=== PATIENT | male | born 1985 | race Caucasian/White ===

== ENCOUNTER 2019-01-24 19:12 | Emergency (ER) | payer BC, MEDICAID, OTHER ==
[~2019-01-24] VITALS: Ht 177.8 cm; Wt 68.5 kg
[2019-01-24] MEDS ORDERED: MORPHINE SULFATE INJ 2 MG/ML DISP.SYRIN ONE (19:59)
[2019-01-24] MEDS ORDERED: ONDANSETRON HCL/PF 4 MG/2 ML VIAL ONE (19:59)
[2019-01-24] MEDS ORDERED: ONDANSETRON HCL/PF 4 MG/2 ML VIAL IVP ONE (20:00)
[2019-01-24] MEDS ORDERED: MORPHINE SULFATE INJ 2 MG/ML DISP.SYRIN IV ONE (20:00)
[2019-01-24] MEDS ORDERED: IV NS 0.9% 1,000 ML BAG IV ONE (20:00)
[2019-01-24 20:15] LABS: BASOPHILS % (AUTO) 0.6 % (0.0-2.0); EOSINOPHILS % (AUTO) 6.5 % (0.0-6.0); HEMATOCRIT 45 % (39-51); HEMOGLOBIN 15.2 g/dL (13.5-17.5); LYMPHOCYTES # (AUTO) 2.1 /CMM (0.8-4.8); LYMPHOCYTES % (AUTO) 29.2 % (20.0-44.0); MEAN CORPUSCULAR HGB CONC 34 g/dl (31.0-36.0); MEAN CORPUSCULAR VOLUME 85 fL (80-96); MONOCYTES # (AUTO) 0.8 /CMM (0.1-1.30); MONOCYTES % (AUTO) 11.7 % (2.0-12.0); NEUTROPHILS # (AUTO) 3.8 /CMM (1.8-8.9); PLATELET COUNT (AUTO) 198 /CMM (150-450); RED BLOOD CELL COUNT(AUTO) 5.27 MIL/uL (4.5-6.0); WHITE BLOOD COUNT (AUTO) 7.2 K/uL (4.3-11.0)
[2019-01-24 20:18] LABS: APPEARANCE,URINE Clear (CLEAR); BILIRUBIN,URINE Negative (NEGATIVE); BLOOD, URINE Negative Ery/uL (NEGATIVE); COLOR,URINE Yellow (YELLOW); KETONES,URINE Negative (NEGATIVE); LEUKOCYTE ESTERASE ,URINE Negative (NEGATIVE); NITRITE, URINE Negative (NEGATIVE); PROTEIN,URINE Negative (NEGATIVE); UGLUCOSE Negative (NEGATIVE)
--- NOTE | 2019-01-24 20:18 | NUR ---
PT BIBS C/O ABDOMINAL PAIN X3 DAYS, "WORSE AFTER HAVING A BM WITH CRAMPING AND SPASM", BED 1 LINE STARTED, LABS DRAWN, 1L NS INFUSSING
--- NOTE | 2019-01-24 20:20 | NUR ---
PT TAKEN TO CT
[2019-01-24 20:31] LABS: BACTERIA,URINE Few /HPF (None Seen); RBC,URINE 0-2 /HPF (0-2); SQUAMOUS EPITHELIAL CELL,UR Few /HPF (None Seen); WBC,URINE 0-2 /HPF (0-3)
--- NOTE | 2019-01-24 20:40 | NUR ---
PT BACK FROM CT
[2019-01-24 20:48] LABS: CALCIUM, SERUM 9.3 mg/dL (8.5-10.1)
[2019-01-24 20:54] LABS: ALBUMIN 4.1 g/dL (3.4-5.0); BILIRUBIN,DIRECT 0.1 mg/dL (0.0-0.2); BILIRUBIN,TOTAL 0.5 mg/dL (0.2-1.0); TOTAL PROTEIN, SERUM 8.5 g/dL (6.4-8.2)
--- NOTE | 2019-01-24 21:19 | NUR ---
Patient discharged to home in stable condition. Written and verbal after care instructions given. Patient verbalizes understanding of instruction.
[2019-01-24 21:21] VITALS: BP 157/105
== END 2019-01-24 21:23 | disposition home or self-care (01) ==
LOC: ER 19:18
DX: K59.00 Constipation, unspecified (principal); R10.84 Generalized abdominal pain; Z88.8 Allergy status to other drugs, medicaments and biological substances
CPT/HCPCS: 36415; 71045; 74176; 80048; 80076; 81001; 83690; 85025; 99284; J7030; 81000-TC; J2270; J2405

== ENCOUNTER 2019-10-06 17:24 | Emergency (ER) | payer BC ==
[~2019-10-06] VITALS: Ht 177.8 cm; Wt 79.4 kg
--- NOTE | 2019-10-06 17:55 | NUR ---
PT TO CT ON PRANAV
--- NOTE | 2019-10-06 17:57 | NUR ---
BIBS TO ER BED 9. AAOX4. NOT IN RESP DISTRESS. AMBULATORY. C/O BACK OF NECK TINGLINGS SENSATION THAT IS EXTENDING TO THE R SIDE OF THE HEAD. NO VISUAL DISTURBANCE. NO NEURO DEFITI NOTED. MD WAS TA BEDSIDE FOR EVAL. ORDERS RECEIVED NOTED AND CARRIED OUT.
--- NOTE | 2019-10-06 19:04 | NUR ---
Patient discharged to home in stable condition. Written and verbal after care instructions given. Patient verbalizes understanding of instruction.
[2019-10-06 19:05] VITALS: BP 144/91
== END 2019-10-06 19:05 | disposition home or self-care (01) ==
LOC: ER 17:24
DX: S16.1XXA Strain of muscle, fascia and tendon at neck level, initial encounter (principal); R51 Headache; I10 Essential (primary) hypertension; Z88.8 Allergy status to other drugs, medicaments and biological substances; X58.XXXA Exposure to other specified factors, initial encounter; Y93.89 Activity, other specified; Y92.89 Other specified places as the place of occurrence of the external cause; Y99.8 Other external cause status
CPT/HCPCS: 70450-TC; 72125-TC

== ENCOUNTER 2019-10-27 14:37 | Emergency (ER) | payer BC ==
[~2019-10-27] VITALS: Ht 167.6 cm; Wt 61.2 kg
--- NOTE | 2019-10-27 14:52 | NUR ---
PT AMBULATORY TO ER BED 11 C/O DRY COUGH AND SORETHROAT THAT STARTED YESTERDAY PT STATES SOB X TODAY. PT CONCERNED ABOUT COVID19 BECAUSE OF EXPOSURE TO PEOPLE W HX OF TRAVEL. 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 AWAITING MD VILLELA.
--- NOTE | 2019-10-27 15:19 | NUR ---
DR BLANDON AT BEDSIDE FOR EVAL.
--- NOTE | 2019-10-27 15:48 | NUR ---
COVID SWAB DONE AND SENT
--- NOTE | 2019-10-27 16:01 | NUR ---
RADIOLOGY AT BEDSIDE FOR CHEST XRAY.
--- NOTE | 2019-10-27 17:14 | NUR ---
Patient discharged to home in stable condition. Written and verbal after care instructions given. Patient verbalizes understanding of instruction.
[2019-10-27 17:18] VITALS: BP 152/99
== END 2019-10-27 17:19 | disposition home or self-care (01) ==
LOC: ER 14:37
DX: R05 Cough (principal); J02.9 Acute pharyngitis, unspecified; Z20.828 Contact with and (suspected) exposure to other viral communicable diseases; D66 Hereditary factor VIII deficiency
CPT/HCPCS: 71045; 99284; U0003

== ENCOUNTER 2019-12-08 11:52 | Emergency (ER) | payer BC ==
[~2019-12-08] VITALS: Ht 167.6 cm; Wt 65.8 kg
--- NOTE | 2019-12-08 12:10 | NUR ---
PATIENT CAME IN TO THE ER C/O UPPER BACK AND NECK PAIN X1 WEEK. ANXIOUS, "I FEEL MY HEART BEAT FAST". ON ROOM AIR, BREAHTING EVENLY AND UNLABORED. CONNECTED TO THE MONITOR AND PULSE OX. WILL CONTINUE TO MONITOR ACCORDINGLY.
[2019-12-08 13:26] VITALS: BP 142/78
--- NOTE | 2019-12-08 13:26 | NUR ---
Patient discharged to home in stable condition. Written and verbal after care instructions given. Patient verbalizes understanding of instruction.
== END 2019-12-08 13:26 | disposition home or self-care (01) ==
LOC: ER 11:52
DX: M54.6 Pain in thoracic spine (principal); R07.89 Other chest pain; F41.9 Anxiety disorder, unspecified; R00.2 Palpitations; I10 Essential (primary) hypertension; Z88.8 Allergy status to other drugs, medicaments and biological substances
CPT/HCPCS: 71045-TC

== ENCOUNTER 2020-02-02 20:26 | Emergency (ER) | payer BC, OTHER ==
[~2020-02-02] VITALS: Ht 167.6 cm; Wt 65.8 kg
--- NOTE | 2020-02-02 20:42 | NUR ---
PT CAME TO ER BED 2 C/O HIGH BLOOD PRESSURE. PATIENT STATES THAT HE NOTICED THAT HE HAD HIGH BLOOD PRESSURE SINCE 6 MONTHS AGO AND IS TAKING [place]ART[place] AND UNSURE OF WHICH BETA-JACQUELINE PRESCRIBED BY HIS SUPPLIER RELATIONSHIP DIRECTOR. PATIENT STATES THAT WHEN HE IS BREATHING HEAVILY OR IS FEELING NERVOUS, HE NOTICES HIS BLOOD PRESSURE IS HIGH. PATIENT IS AAOX4. NO SOB. DENIES BEING ANXIOUS OR NERVOUS. CONNECTED TO MONITOR.
[2020-02-02 20:49] VITALS: BP 148/99
--- NOTE | 2020-02-02 21:00 | NUR ---
Patient discharged to home in stable condition. Written and verbal after care instructions given. Patient verbalizes understanding of instruction.
== END 2020-02-02 21:09 | disposition home or self-care (01) ==
LOC: ER 20:30
DX: F41.9 Anxiety disorder, unspecified (principal); I10 Essential (primary) hypertension; Z88.8 Allergy status to other drugs, medicaments and biological substances

== ENCOUNTER 2020-03-23 13:58 | Emergency (ER) | payer OTHER ==
[~2020-03-23] VITALS: Ht 167.6 cm; Wt 61.2 kg
--- NOTE | 2020-03-23 14:07 | NUR ---
C/O FLU-LIKE SYMPTOMS x 3DAYS & ELEVATED BP, TOOK LOSARTAN AND BETA-JACQUELINE THIS AM. PATIENT STATES HE WAS DIAGNOSED WITH BRONCHITIS 3 MOS AGO. TO ER BED 7, HOOKED TO BP CUFF AND POX, CHANGED TO HOSP GOWN, WARM BLANKET PROVIDED, PATIENT AAOx 4, BREATHING EVEN AND UNLABORED, NAD NOTED, AWAITING MD VILLELA.
--- NOTE | 2020-03-23 14:38 | NUR ---
DR OTERO AT BEDSIDE
--- NOTE | 2020-03-23 15:15 | NUR ---
DC Patient discharged to home in stable condition. Written and verbal after care instructions given. Patient verbalizes understanding of instruction.
[2020-03-23 15:25] VITALS: BP 142/88
== END 2020-03-23 15:26 | disposition home or self-care (01) ==
LOC: ER 14:02
DX: R05 Cough (principal); I10 Essential (primary) hypertension; Z86.2 Personal history of diseases of the blood and blood-forming organs and certain disorders involving the immune mechanism; Z88.8 Allergy status to other drugs, medicaments and biological substances
CPT/HCPCS: 71045-TC

== ENCOUNTER 2020-12-21 12:05 | Emergency (ER) | payer MEDICAID ==
[~2020-12-21] VITALS: Ht 167.6 cm; Wt 68.0 kg
--- NOTE | 2020-12-21 12:16 | NUR ---
THE PATIENT BIB 911 FOR BLOOD PRESSURE WAS 174/122,SOB AND UPPER ABDOMINAL PAIN. THE PATIENT DENIES PAIN AT THIS TIME. IN ROOM AIR AND DENIES SOB. RESPIRATION REGULAR AND UNLABORED. ATTACHED TO THE MONITOR.
--- NOTE | 2020-12-21 12:46 | NUR ---
BLOOD PRESSURE 146/[address] MAGANA AWARE WITH NO NEW ORDERS.
--- NOTE | 2020-12-21 12:49 | NUR ---
Patient discharged to home in stable condition. Written and verbal after care instructions given. Patient verbalizes understanding of instruction.
[2020-12-21 12:50] VITALS: BP 146/101
== END 2020-12-21 12:50 | disposition home or self-care (01) ==
LOC: ER 12:40
DX: I10 Essential (primary) hypertension (principal); F41.9 Anxiety disorder, unspecified; Z88.8 Allergy status to other drugs, medicaments and biological substances

== ENCOUNTER 2021-02-13 14:30 | Emergency (ER) | payer MEDICAID ==
[~2021-02-13] VITALS: Ht 170.2 cm; Wt 81.6 kg
[2021-02-13 14:34] VITALS: BP 138/91
--- NOTE | 2021-02-13 14:36 | NUR ---
TO ER BED 4, DIZZINESS AND NAUSEA FOR 3DAYS, A&OX4, BREATHING EVEN AND UNLABORED. AWAITING MD VILLELA
[2021-02-15] MEDS ORDERED: IBUPROFEN 400 MG TABLET ONE (01:23)
== END 2021-02-13 15:02 | disposition home or self-care (01) ==
LOC: ER 14:58
DX: I10 Essential (primary) hypertension (principal); Z88.8 Allergy status to other drugs, medicaments and biological substances

== ENCOUNTER 2021-03-30 21:32 | Emergency (ER) | payer MEDICAID ==
[~2021-03-30] VITALS: Ht 167.6 cm; Wt 59.0 kg
--- NOTE | 2021-03-30 22:00 | NUR ---
PT BIBS C/O HIGH BLOOD PRESSURE 204/132 +HEADACHE/MIGRAINE X1WEEK. PT ALERT AND ORIENTED X3. AMBULATORY WITH NON LABORED BREATHING. PT PLACED ON A MONITOR
[2021-03-30 22:45] LABS: BASOPHILS % (AUTO) 0.6 % (0.0-2.0); EOSINOPHILS % (AUTO) 10.4 % (0.0-6.0); HEMATOCRIT 47 % (39-51); HEMOGLOBIN 15.8 g/dL (13.5-17.5); LYMPHOCYTES # (AUTO) 1.7 K/uL (0.8-4.8); LYMPHOCYTES % (AUTO) 26.1 % (20.0-44.0); MEAN CORPUSCULAR HGB CONC 34 g/dl (31.0-36.0); MEAN CORPUSCULAR VOLUME 87 fL (80-96); MONOCYTES # (AUTO) 0.8 K/uL (0.1-1.30); MONOCYTES % (AUTO) 12.1 % (2.0-12.0); NEUTROPHILS # (AUTO) 3.3 K/uL (1.8-8.9); NEUTROPHILS % (AUTO) 50.8 % (43.0-81.0); PLATELET COUNT (AUTO) 190 K/uL (150-450); RED BLOOD CELL COUNT(AUTO) 5.41 MIL/uL (4.5-6.0); WHITE BLOOD COUNT (AUTO) 6.4 K/uL (4.3-11.0)
[2021-03-30 23:02] LABS: CALCIUM, SERUM 9.7 mg/dL (8.5-10.1); CREATININE 1.1 mg/dL (0.6-1.3); POTASSIUM 3.9 mmol/L (3.5-5.1)
--- NOTE | 2021-03-30 23:06 | NUR ---
PATIENT TAKEN TO CT
[2021-03-30 23:08] LABS: ALBUMIN 4.2 g/dL (3.4-5.0); BILIRUBIN,DIRECT 0.1 mg/dL (0.0-0.2); BILIRUBIN,TOTAL 0.4 mg/dL (0.2-1.0); TOTAL PROTEIN, SERUM 8.8 g/dL (6.4-8.2)
--- NOTE | 2021-03-30 23:52 | NUR ---
CALLED KORI FOR CT READ
[2021-03-31] MEDS ORDERED: ACETAMINOPHEN 325 MG TABLET PO ONE (00:30)
[2021-03-31] MEDS ORDERED: ACETAMINOPHEN 325 MG TABLET ONE (00:41)
--- NOTE | 2021-03-31 01:08 | NUR ---
Patient discharged to home in stable condition. Written and verbal after care instructions given. Patient verbalizes understanding of instruction. IV line discontinued.
[2021-03-31 01:09] VITALS: BP 141/95
== END 2021-03-31 01:09 | disposition home or self-care (01) ==
LOC: ER 21:34
DX: I10 Essential (primary) hypertension (principal); R51.9 Headache, unspecified; Z98.890 Other specified postprocedural states; Z88.8 Allergy status to other drugs, medicaments and biological substances
CPT/HCPCS: 36415; 70450-TC; 80048-TC; 80076-TC; 84484-TC; 85025-TC; 85730-TC

== ENCOUNTER 2022-03-22 16:02 | Emergency (ER) | payer BC, MEDICAID ==
[~2022-03-22] VITALS: Ht 167.6 cm; Wt 80.7 kg
--- NOTE | 2022-03-22 16:20 | NUR ---
BIBS C/O ABDOMINAL PAIN 10/16 STARTED YESTERDAY, HX OF HEMOPHILIA A. AMBULATORY, PLACED ON BED, NOT IN PAIN- ITS ABDOMINAL UPSET VERBALIZED.
--- NOTE | 2022-03-22 16:27 | NUR ---
URINE SAMPLE SENT TO LAB
--- NOTE | 2022-03-22 16:35 | NUR ---
Note brianne in EDM - 03/22/22 at 1724 by MORIAH BIBPan C/O ABDOMINAL PAIN 10/16 STARTED YESTERDAY, HX OF HEMOPHILIA A. AMBULATORY, PLACED ON BED, NOT IN PAIN BUT ITS ABDOMINAL UPSET VERBALIZED.
--- NOTE | 2022-03-22 17:15 | NUR ---
Eitan decker in [facility] - 03/22/22 at 1724 by MORIAH SPECIAL SKILLS OFFICER AT BEDSIDE
--- NOTE | 2022-03-22 17:15 | NUR ---
ENDING MACHINE OPERATOR AT BEDSIDE
--- NOTE | 2022-03-22 17:20 | NUR ---
U/S TECH AT BEDSIDE
[2022-03-22 17:33] LABS: BASOPHILS % (AUTO) 0.6 % (0.0-2.0); EOSINOPHILS % (AUTO) 11.8 % (0.0-6.0); HEMATOCRIT 45 % (39-51); HEMOGLOBIN 15.4 g/dL (13.5-17.5); LYMPHOCYTES # (AUTO) 1.7 K/uL (0.8-4.8); MEAN CORPUSCULAR HGB CONC 34 g/dl (31.0-36.0); MEAN CORPUSCULAR VOLUME 85 fL (80-96); MONOCYTES # (AUTO) 0.6 K/uL (0.1-1.30); MONOCYTES % (AUTO) 10.1 % (2.0-12.0); NEUTROPHILS # (AUTO) 3.2 K/uL (1.8-8.9); NEUTROPHILS % (AUTO) 50.5 % (43.0-81.0); PLATELET COUNT (AUTO) 175 K/uL (150-450); RED BLOOD CELL COUNT(AUTO) 5.28 MIL/uL (4.5-6.0); WHITE BLOOD COUNT (AUTO) 6.3 K/uL (4.3-11.0)
[2022-03-22 17:47] LABS: ALBUMIN 4.2 g/dL (3.4-5.0); BILIRUBIN,DIRECT 0.2 mg/dL (0.0-0.2); BILIRUBIN,TOTAL 0.5 mg/dL (0.2-1.0); CALCIUM, SERUM 9.1 mg/dL (8.5-10.1); POTASSIUM 3.5 mmol/L (3.5-5.1); TOTAL PROTEIN, SERUM 8.4 g/dL (6.4-8.2)
--- NOTE | 2022-03-22 18:10 | NUR ---
Patient discharged to home in stable condition. Written and verbal after care instructions given. Patient verbalizes understanding of instruction.
[2022-03-22 18:28] VITALS: BP 135/89
== END 2022-03-22 18:10 | disposition home or self-care (01) ==
LOC: ER 16:03
DX: R10.9 Unspecified abdominal pain (principal); K76.0 Fatty (change of) liver, not elsewhere classified; I10 Essential (primary) hypertension; Z88.8 Allergy status to other drugs, medicaments and biological substances
CPT/HCPCS: 36415; 76705-TC; 80048-TC; 80076-TC; 83690-TC; 85025-TC

== ENCOUNTER 2025-03-25 11:12 | Emergency (ER) | payer BC ==
[~2025-03-25] VITALS: Ht 175.3 cm; Wt 77.1 kg
[2025-03-25 11:14] VITALS: TEMP 98.3
[2025-03-25 12:20] VITALS: BP 155/99; O2SAT 99
== END 2025-03-25 12:21 | disposition home or self-care (01) ==
LOC: ER 11:18
DX: R00.2 Palpitations (principal); I10 Essential (primary) hypertension